=== PATIENT | male | born 1955 | race Caucasian/White ===

== ENCOUNTER 2022-01-09 08:05 | Emergency (ER) | payer OTHER ==
[2022-01-09] MEDS ORDERED: SODIUM CHLORIDE 0.9% 1,000 ML IV STA (08:25)
[2022-01-09] MEDS ORDERED: HYDROmorphone 1 MG/ML CARPUJECT IVP STA ×2 (08:25→11:06)
[2022-01-09] MEDS ORDERED: METOCLOPRAMIDE 10 MG/2 ML VIAL IVP STA (08:25)
--- NOTE | 2022-01-09 08:26 | ED Physician Documentation ---
PD HPI ABD PAIN - Stated complaint Stated Complaint: ABD PAIN - Chief complaint Chief Complaint: Abd Pain - History obtained from History obtained from: Patient - Additional information Additional information: 66-year-old gentleman is postop day 3 after laparoscopic cholecystectomy done at [facility]. He was feeling good the night after the surgery, in fact was relieved to have less gallbladder pain. He describes the gallbladder surgery is having gone well but there is found some incidental spots on the liver. One was biopsied and the pathology is pending, he was to have a CAT scan next week for follow-up on this. He has been taking oxycodone and Zofran without relief. He has been nauseous. Review of Systems Constitutional: denies: Fever, Chills Ears: reports: Reviewed and negative Nose: reports: Reviewed and negative Throat: reports: Reviewed and negative Cardiac: reports: Reviewed and negative Respiratory: reports: Reviewed and negative PD PAST MEDICAL HISTORY - Present Medications Home Medications: Ambulatory Orders Medication Instructions Recorded Confirmed HYDROmorphone [Dilaudid] 1 - 2 tab PO Q4H #30 tablet 01/09/22 Lisinopril [Zestril] 20 mg PO DAILY 01/09/22 01/09/22 Ondansetron Odt [Zofran Odt] 4 mg TL Q8HR PRN 01/09/22 01/09/22 oxyCODONE [Roxicodone] 2.5 - 5 mg PO Q6H PRN 01/09/22 01/09/22 - Allergies Allergies/Adverse Reactions: Allergies Allergy/AdvReac Type Severity Reaction Status Date / Time No Known Drug Allergies Allergy Verified 01/09/22 08:13 PD ED PE NORMAL - Vitals Vital signs reviewed: Yes - General General: Alert and oriented X 3, No acute distress - HEENT HEENT: PERRL, EOMI - Neck Neck: Supple, no meningeal sign, No bony TTP - Cardiac Cardiac: RRR, No murmur - Respiratory Respiratory: No respiratory distress, Clear bilaterally - Abdomen Abdomen: Other (He has an umbilical hernia which is not a new issue. It is not tender and it is reducible. Laparoscopic incisions are clean dry and intact. He has hyperactive bowel tones with moderate diffuse tenderness and slight guarding.) - Back Back: No CVA TTP, No spinal TTP - Derm Derm: Normal color, Warm and dry - Extremities Extremities: No edema, No calf tenderness / cord - Neuro Neuro: Alert and oriented X 3, Normal speech Results - Vitals Vitals: Vital Signs - 24 hr 01/09/22 01/09/22 08:10 08:35 Temperature 36.4 C L Heart Rate 110 H 99 Respiratory 16 18 Rate Blood Pressure 148/93 H 161/82 H O2 Saturation 100 99 Oxygen O2 Source Room air - EKG (time done) 0836 Rate: Rate (enter#) (93) Rhythm: NSR [place]: Normal Intervals: Normal SC QRS: Normal Ischemia: Normal ST segments - Labs Labs: Laboratory Tests 01/09/22 01/09/22 01/09/22 08:30 08:30 08:30 WBC 8.1 RBC 4.66 L Hgb 14.1 Hct 41.8 L MCV 89.7 MCH 30.3 MCHC 33.7 RDW 13.0 Plt Count 266 MPV 10.1 Neut # (Auto) 6.2 Lymph # (Auto) 0.8 L [place] # (Auto) 0.9 Eos # (Auto) 0.2 Baso # (Auto) 0.0 Absolute Nucleated RBC 0.00 Nucleated RBC % 0.0 Sodium 131 L Potassium 4.6 Chloride 90 L Carbon Dioxide 29 Anion Gap 12.0 BUN 11 Creatinine 1.0 Estimated GFR (MDRD) 75 L Glucose 132 H Calcium 9.7 Total Bilirubin 0.9 AST 37 ALT 44 Alkaline Phosphatase 139 H Troponin I High Sens 5.8 Total Protein 7.5 Albumin 3.8 Globulin 3.7 Albumin/Globulin Ratio 1.0 Lipase 201 H - Rads (name of study) CT A/P with IV and PO contrast Radiology: EMP read contemporaneously (5.3 cm pancreatic mass consistent with malignancy and metastases to liver with SMA stenosis at 70%.) PD MEDICAL DECISION MAKING - ED course ED course: 66-year-old gentleman presents with epigastric pain radiating up and down starting a day after a lap june a few days ago. Pathology from liver lesions found incidentally during the is pending and CT done today unfortunately shows what looks like likely metastatic pancreatic cancer which I suspect is now becoming symptomatic. He does have some SMA stenosis but I do not think that is particularly causing his pain and 70%, plus his pain is more constant than postprandial. I did discuss the case by phone with Dr. J Luis Land, on-call for the [facility] where his surgeon is and they will arrange to follow-up with him tomorrow to make sure his pain is controlled and to follow-up on the pathology with likely subsequent referral to oncology. Departure - Departure Disposition: 01 Home, Self Care Clinical Impression: Pancreatic cancer metastasized to liver Abdominal pain Qualifiers: Abdominal location: generalized Qualified Code(s): R10.84 - Generalized abdominal pain Condition: Good Record reviewed to determine appropriate education?: Yes Prescriptions: HYDROmorphone [Dilaudid] 1 - 2 tab PO Q4H #30 tablet Comments: I sent your prescription electronically to [facility] in [place]. As discussed, CT is suggestive of metastatic pancreatic cancer with metastases to liver. I spoke today with Dr. J Luis Land on-call for Dr. Islas. He said they would reach out with you tomorrow to make sure your pain is controlled on the medications I am prescribing and to arrange follow-up. Return for new or worsening symptoms. I am prescribing a short course of narcotic pain medication for you. These are potentially dangerous and addictive medications that should be used carefully. These medications may constipate you. Take an aqwb-bof-beyiopd stool softener (docusate) twice daily with plenty of water while taking these medications. If you go 24 hours without a bowel movement, take [id number] miralax, per package instructions. Do not drink or drive while taking these medications. If you received narcotic or sedating medications while in the emergency department, do not drive for 24 hours. Store this medication in a safe, secure place and out of reach of children. It is a violation of federal law to give or sell this medication to another person or to use in a manner other than prescribed. The ED will not refill narcotic prescriptions, including prescriptions lost or stolen. To dispose of unwanted medications: 1. [facility] at [address] in [place] has a medication drop box. They accept prescription medications (in pill form) Monday through Monday 9:00 a.m. to 5:00 p.m. 2. The [facility] accepts prescription medications (in pill form only) for disposal year round. Call for more information. 3. Contact the [facility] for the next [employer] sponsored prescription drug collection event. , [phone], or [phone]; Note that many narcotic pain relievers also contain Tylenol/acetaminophen. Please ensure that your total dose of acetaminophen from all sources does not exceed 3 g (3000 mg) per day.
[2022-01-09 08:36] LABS: BASOPHILS % (AUTO) 0.4 %; EOSINOPHILS # (AUTO) 0.2 10^3/uL (0.0-0.7); HCT - HEMATOCRIT 41.8 % (42.0-52.0); HGB - HEMOGLOBIN 14.1 g/dL (14.0-18.0); LYMPHOCYTES # (AUTO) 0.8 10^3/uL (1.5-3.5); MEAN CORPUSCULAR HEMOGLOBIN 30.3 pg (27.0-31.0); MEAN CORPUSCULAR HGB CONC 33.7 g/dL (32.0-36.0); MEAN CORPUSCULAR VOLUME 89.7 fL (80.0-94.0); MEAN PLATELET VOLUME 10.1 fL (7.4-11.4); MONOCYTES # (AUTO) 0.9 10^3/uL (0.0-1.0); MONOCYTES % (AUTO) 10.6 %; NEUTROPHILS # (AUTO) 6.2 10^3/uL (1.5-6.6); NEUTROPHILS % (AUTO) 76.6 %; PLT - PLATELET COUNT 266 10^3/uL (130-450); RED BLOOD COUNT 4.66 10^6/uL (4.70-6.10); WHITE BLOOD COUNT 8.1 x10^3/uL (4.8-10.8)
[2022-01-09] MEDS ORDERED: LIDOCAINE VISCOUS 2% 15 ML UDC MM STA (08:40)
[2022-01-09] MEDS ORDERED: MAG HYDROX/AL HYDROX/SIMETH 30 ML UDC PO STA (08:40)
[2022-01-09] MEDS ORDERED: IOVERSOL 320 50 ML VIAL ONE (08:43)
[2022-01-09] MEDS ORDERED: IOVERSOL 320 100 ML VIAL IVP ONE ×2 (08:43→10:10)
[2022-01-09 08:53] LABS: ALBUMIN 3.8 g/dL (3.2-5.5); BILIRUBIN,TOTAL 0.9 mg/dL (0.2-1.0); CALCIUM 9.7 mg/dL (8.5-10.3); POTASSIUM 4.6 mmol/L (3.5-5.0); TOTAL PROTEIN 7.5 g/dL (6.7-8.2)
[2022-01-09] MEDS ORDERED: IOVERSOL 320 50 ML VIAL PO ONE (10:10)
--- NOTE | 2022-01-09 10:32 | CT Report ---
PROCEDURE: Abdomen/Pelvis W INDICATIONS: IV and PO, post op abd pain CONTRAST: IV CONTRAST: Optiray 320 ml: 100 PO CONTRAST: Optiray 320 ml50 TECHNIQUE: After the administration of oral and IV contrast, 5 mm thick sections acquired from the diaphragms to the symphysis. 5 mm thick coronal and sagittal reformats were acquired. For radiation dose reducti on, the following was used: automated exposure control, adjustment of mA and/or kV according to beto ent size. COMPARISON: None. FINDINGS: Image quality: Excellent. ABDOMEN: Lung bases: Lung bases are clear. Heart size is normal. Solid organs: The liver demonstrates numerous poorly defined hypoenhancing nodules. These measure ap proximate 40 Hounsfield units. The largest of these measures approximately 1.7 cm. The liver is emma l size. Gallbladder has been removed. No significant abnormalities of the cholecystectomy bed can be seen. B iliary system is non dilated. The spleen demonstrates normal size and demonstrates no suspicious lesions. Within the uncinate process of the pancreas, there is a poorly defined mass seen, as on series 3 imag e 34 and on series 6 image 24 that measures 5.3 cm. This mass completely envelops the superior mesent cinda artery, as on series 3 image 31. 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 T he pancreatic duct is not dilated. No adrenal nodules. Kidneys demonstrate normal size and enhancement. There is mild bilateral hydrone phrosis. Along the posterior aspect of the right kidney, there is a low-density lesion that measures 13 mm and 25 Hounsfield units. A 14 mm exophytic left renal cyst is seen laterally, as on series 6 i mage 40. Peritoneum and bowel: Bowel loops demonstrate normal wall thickness and caliber. No free fluid or a ir. Nodes and vessels: No retroperitoneal or mesenteric adenopathy by size criteria. Aorta and inferior vena cava are normal in size. Miscellaneous: There is a fat-containing periumbilical hernia. Postoperative gas can be seen involvi ng the anterior abdominal wall of the right upper quadrant. PELVIS: Genitourinary: Bladder wall thickness is normal. There are bladder is distended measuring nearly 17 cm craniocaudal, with the apex seen superior to the level of the umbilicus. The prostate is enlarged and irregular measuring 6.2 cm. Miscellaneous: No inguinal adenopathy. There is a mild fat-containing left inguinal hernia. Bones: No suspicious bony lesions. No vertebral body compression fractures. Focal degenerative tasneem nge is seen at L1-L2 and at L5-S1. Milder degenerative changes are seen elsewhere. IMPRESSION: Status post cholecystectomy, without significant abnormality seen within the cholecystec binh bed. An expected amount of postoperative gas can be seen involving the anterior abdominal wall. 5.3 cm mass involving the uncinate process of the pancreas. This mass completely surrounds the superi or mesenteric artery, with associated stenosis of approximately 70%. Numerous low-density lesions are seen within the liver which are relatively poorly defined and hypoen hancing. These represent metastatic pancreatic cancer until proven otherwise. Distended urinary bladder. Bilateral obstruction is suspected in this patient with an enlarged prosta te. There is mild bilateral hydronephrosis. A cause of obstruction is not seen. Along the posterior aspect of the right kidney, there is an exophytic lesion that cannot be defined a s a simple cyst and may represent a complex cyst. Incidental note is made of: Simple appearing left renal cyst Fat-containing periumbilical hernia Focal degenerative change seen at L1-L2 and L5-S1. Mild fat-containing left inguinal hernia. Note: Case discussed by telephone with Dr. Landeros at 9:26 AM [place] time on 01/09/2022. Reviewed by: Ashok Omer MD on 01/09/2022 9:30 AM BENNY Approved by: Ashok Omer MD on 01/09/2022 9:30 AM BENNY Station ID: [id number]
[2022-01-09 11:01] VITALS: BP 151/94
== END 2022-01-09 11:15 | disposition home or self-care (01) ==
LOC: ED 08:05
DX: R10.84 Generalized abdominal pain (principal); C25.9 Malignant neoplasm of pancreas, unspecified; C78.7 Secondary malignant neoplasm of liver and intrahepatic bile duct
CPT/HCPCS: 36415; 74177; 80053; 83690; 84484; 85025; 93005; 96374; 96375; 96376; 99284; A9270; J1170; J2765; Q9967